=== PATIENT | female | born 1965 | race Caucasian/White ===

== ENCOUNTER 2017-11-04 12:45 | Emergency (ER) | payer OTHER ==
[2017-11-04 12:58] VITALS: BP 146/90
--- NOTE | 2017-11-04 13:49 | ED Physician Documentation ---
PD HPI HEENT - Stated complaint Stated Complaint: LEFT EAR CLOGGED - Chief complaint Chief Complaint: Heent - History obtained from History obtained from: Patient, Family - History of Present Illness Timing - onset: How many days ago (4) Timing - duration: Days (4) Timing - details: Gradual onset, Still present Location: Left ear Improves: Medication Associated symptoms: Other (cant hear) Similar symptoms before: Diagnosis (cerumen impaction) Recently seen: Not recently seen - Additional information Additional information: 51-year-old female has had a problem with wax in her ear since childhood and she has recently lost hearing in her left ear she is not able to get wax out of there she has used some wax removing substance available [id number] and this is not resolved her situation. Review of Systems Constitutional: denies: Fever Eyes: denies: Decreased vision Ears: reports: Loss of hearing, Ear pain Nose: denies: Rhinorrhea / runny nose, Congestion Throat: denies: Sore throat Respiratory: denies: Dyspnea, Cough PD PAST MEDICAL HISTORY - Past Medical History Past Medical History: Yes Cardiovascular: Hypertension - Past Surgical History Past Surgical History: No - Social History Does the pt smoke?: No Smoking Status: Never smoker Does the pt drink ETOH?: No Does the pt have substance abuse?: No - Immunizations Immunizations are current?: No - POLST Patient has POLST: No PD ED PE NORMAL - Vitals Vital signs reviewed: Yes (hypertensive) - General General: Alert and oriented X 3, No acute distress, Well developed/nourished - HEENT HEENT: Atraumatic, PERRL, EOMI, Other (There is cerumen occluding the canal deep in the small tortuous canal on the left. There is less cerumen present on the right side. ) - Neck Neck: Supple, no meningeal sign, No bony TTP - Respiratory Respiratory: No respiratory distress - Derm Derm: Normal color, Warm and dry, No rash - Extremities Extremities: No deformity, No edema - Neuro Neuro: No motor deficit, No sensory deficit Eye Opening: Spontaneous Motor: Obeys Commands Verbal: Oriented GCS Score: 15 - Psych Psych: Normal mood, Normal affect Results - Vitals Vitals: Vital Signs - 24 hr 11/04/ 12:50 Temperature 36.4 C L Heart Rate 80 Respiratory 16 Rate Blood Pressure 146/90 H O2 Saturation 99 Oxygen O2 Source Room air Procedures - General procedure General procedure: Cerumen removal. On the left ear hydrogen peroxide is instilled in the year and is left to sit for 20 minutes. Following this irrigation with further hydrogen peroxide is done relieving the cerumen obstruction. Following the cleaning of the ear there is a small rim of residual cerumen that is remaining and an attempt to remove this with a curette just causes pain to the patient. TM is without evidence of inflammation. PD MEDICAL DECISION MAKING - ED course Complexity details: considered differential, d/w patient, d/w family ED course: 51-year-old female with cerumen impaction left ear has removal of the cerumen with hydrogen peroxide with return of her hearing. Departure - Departure Disposition: 01 Home, Self Care Clinical Impression: Impacted cerumen, left ear Condition: Stable Instructions: ED Wax Ear Home Removal, ED Earwax Removal Follow-Up: CRESENCIO Kothari [Provider Group]
== END 2017-11-04 13:55 | disposition home or self-care (01) ==
LOC: ED 12:45
DX: H61.22 Impacted cerumen, left ear (principal); I10 Essential (primary) hypertension
CPT/HCPCS: 69210; 99282